=== PATIENT | female | born 1990 | race Caucasian/White ===

== ENCOUNTER 2018-06-18 15:01 | Outpatient (CLI) | payer MEDICAID, OTHER ==
[~2018-06-18] VITALS: Ht 167.6 cm; Wt 104.3 kg
[~2018-06-18 15:01] MED LIST: KEFLEX; PNV; TYLENOL
[2018-06-20] MEDS ORDERED: ACHD5005 PO (14:13)
== END 2018-06-18 15:37 | disposition home or self-care (01) ==
LOC: PREOP 15:01
PROVIDERS: ATTEND Podiatrist Foot & Ankle Surgery
DX: Z01.818 Encounter for other preprocedural examination (principal)

== ENCOUNTER 2018-06-20 10:58 | Day surgery (SDC) | payer MEDICAID, OTHER ==
[~2018-06-20] VITALS: Ht 167.6 cm; Wt 104.3 kg
[2018-06-20] MEDS ORDERED: LACTATED RINGERS 1,000 ML IV PRN (11:12)
[2018-06-20] MEDS ORDERED: ceFAZolin INJECTION 1,000 MG in NS (IVPB) 50 ML IV ONE (11:15)
[2018-06-20 11:57] VITALS: BP 115/65
[2018-06-20] MEDS ORDERED: proPOfol 200 MG/20 ML (DIPRIVAN) VIAL IV ONE (12:09)
[2018-06-20] MEDS ORDERED: LACTATED RINGERS 0 ML IV ONE (12:09)
[2018-06-20] MEDS ORDERED: ONDANSETRON 4 MG/2 ML (SDV) Z0FRAN ONE (12:09)
[2018-06-20] MEDS ORDERED: LIDOCAINE PF 2% 5 ML (XYLOCAINE) VIAL ONE (12:09)
[2018-06-20] MEDS ORDERED: BUPIVACAINE 0.25% 30 ML (SENSORCAINE) VIAL ONE (12:10)
[2018-06-20] MEDS ORDERED: fentaNYL INJECTION 100 MCG/2 ML AMP ONE (12:10)
[2018-06-20] MEDS ORDERED: MIDAZOLAM 2 MG/2 ML (VERSED) VIAL ONE (12:10)
[2018-06-20] MEDS ORDERED: DEXAMETHASONE 10 MG/ML (DECADRON) 1 ML VIAL ONE (12:10)
[2018-06-20] MEDS ORDERED: BUPIVACAINE 0.5% 30 ML (SENSORCAINE) VIAL ONE (12:14)
[2018-06-20] MEDS ORDERED: LIDOCAINE 1% INJ 20 ML 20 ML VIAL ONE (12:15)
--- NOTE | 2018-06-20 12:49 | Physical Therapy Progress Note ---
Therapy Progress Note PT performed pre-surgery consultation with patient. Patient was educated on the use of a walker, stairs, and a home exercise program. PACO GERMAN PT Jun 20, 2018 12:49
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
--- OUTSIDE RECORDS SUMMARY | 2018-06-20 13:13 | XMS REPORT ---
Author Author Doreen Emery Organization [facility] Address [address] [place] [id number] Care Team Providers Care Customer Care Associate Name Role Phone Doreen Emery PCP Allergies and Adverse Reactions Name Reaction Notes NO KNOWN DRUG ALLERGIES Plan of Treatment Not available. Medications Name Start Date Expiration Date SIG Comments cephalexin 500 mg oral capsule 02/07/2018 02/14/2018 take 1 capsule (500 mg) by oral route 4 times per day Problem List Not available. Vital Signs Date Time BP-Sys(mm[Hg] BP-Caitlyn(mm[Hg]) HR(bpm) RR(rpm) Temp WT HT HC BMI BSA BMI Percentile O2 Sat(%) 02/07/2018 5:22:00 PM 122 mmHg 80 mmHg 74 bpm 18 rpm 98.2 F 235.125 lbs 66 in 37.9498 kg/m 2.2285 m 100 % 02/12/2015 9:24:00 AM 120 mmHg 72 mmHg 78 bpm 20 rpm 97.6 F 230 lbs 66 in 37.12 kg/m2 2.20 m2 98 % 12/29/2013 11:12:00 AM 128 mmHg 78 mmHg 75 bpm 18 rpm 97.6 F 246.8 lbs 66 in 39.8342 kg/m 2.2832 m 100 % Social History Not available. History of Procedures Date Ordered Description Order Status 02/08/2018 12:00 AM Rocephin 1 gram Injection Reviewed 02/07/2018 12:00 AM THER/PROPH/DIAG INJ SC/IM Reviewed 02/07/2018 12:00 AM Rocephin 1 gram Injection Reviewed 12/29/2013 12:00 AM TB INTRADERMAL TEST Reviewed Results Summary Not available. History Of Immunizations Not available. History of Past Illness Name Date of Onset Comments *No known medical problems General Medical Exam, School/Work/etc Dec 29 2013 11:15AM Fingernail problem Feb 12 2015 9:26AM Cellulitis of right lower extremity Feb 07 2018 5:27PM Cellulitis of right foot Feb 08 2018 9:52AM Payers Insurance Name Company Name Plan Name Plan Number Policy Number Policy Group Number Start Date [place] Medical Assistance [facility] Medical Assistance Pro [id number] N/A [facility] [id number] N/A [facility] Occupational Medicine [id number] N/A History of Encounters Visit Date Visit Type Provider 02/08/2018 Nurse visit Doreen Emery PANTRY STEWARD/STEWARDESS 02/07/2018 Office visit Doreen Emery PANTRY STEWARD/STEWARDESS 02/12/2015 Office visit Dwayne Lin PA-C 12/29/2013 Office visit Naomy Burger PANTRY STEWARD/STEWARDESS 09/15/2009 Office visit Jimenez Headley MD 09/08/2009 Office visit Jimenez Headley MD 09/01/2009 Office visit Jimenez Headley MD 08/23/2009 [facility] Negrita Wolf MD 08/23/2009 [facility] Jimenez Headley MD 08/16/2009 Voided Jimenez Headley MD 08/15/2009 [facility] Jimenez Headley MD 08/09/2009 Office visit Jimenez Headley MD 08/02/2009 Office visit Jimenez Headley MD 07/29/2009 [facility] Jimenez Headley MD 07/26/2009 Office visit Jimenez Headley MD 07/20/2009 [facility] Jimenez Headley MD 07/19/2009 Office visit Jimenez Headley MD 07/17/2009 [facility] Jimenez Headley MD 07/05/2009 Office visit Jimenez Headley MD 06/21/2009 Office visit Jimenez Headley MD 06/07/2009 Office visit Jimenez Headley MD 05/10/2009 Office visit Jimenez Headley MD 04/12/2009 Office visit Jimenez Headley MD
--- OUTSIDE RECORDS SUMMARY | 2018-06-20 13:13 | XMS REPORT ---
Author Author [facility] Organization [facility] Address [address] [place], [place] [phone] Care Team Providers Care Automotive Leasing Sales Representative Name Role Phone PCP Unavailable Allergies and Adverse Reactions Name Reaction Notes NO KNOWN DRUG ALLERGIES Plan of Treatment Not available. Medications Not available. Problem List Not available. Vital Signs Date Time BP-Sys(mm[Hg] BP-Caitlyn(mm[Hg]) HR(bpm) RR(rpm) Temp WT HT HC BMI BSA BMI Percentile O2 Sat(%) 02/12/2015 9:24:00 AM 120 mmHg 72 mmHg 78 bpm 20 rpm 97.6 F 230 lbs 66 in 37.12 kg/m2 2.20 m2 98 % 12/29/2013 11:12:00 AM 128 mmHg 78 mmHg 75 bpm 18 rpm 97.6 F 246.8 lbs 66 in 39.8342 kg/m 2.2832 m 100 % Social History Not available. History of Procedures Date Ordered Description Order Status 12/29/2013 12:00 AM TB INTRADERMAL TEST Reviewed Results Summary Not available. History Of Immunizations Not available. History of Past Illness Name Date of Onset Comments *No known medical problems General Medical Exam, School/Work/etc Dec 29 2013 11:15AM Fingernail problem Feb 12 2015 9:26AM Payers Insurance Name Company Name Plan Name Plan Number Policy Number Policy Group Number Start Date [place] Prog [id number] N[facility] [id number] N/A [facility] Med Occupational Medicine [id number] N/A History of Encounters Visit Date Visit Type Provider 02/12/2015 Office visit Dwayne Lin PA-C 12/29/2013 Office visit Naomy Burger APRN 09/15/2009 Office visit Jimenez Headley MD 09/08/2009 Office visit Jimenez Headley MD 09/01/2009 Office visit Jimenez Headley MD 08/23/2009 [facility] Jimenez Headley MD 08/23/2009 [facility] Negrita Wolf MD 08/16/2009 Voided Jimenez Headley MD 08/15/2009 [facility] Jimenez Headley MD 08/09/2009 Office visit Jimenez Headley MD 08/02/2009 Office visit Jimenez Headley MD 07/29/2009 [facility] Jimenez Headley MD 07/26/2009 Office visit Jimenez Headley MD 07/20/2009 [facility] Jimenez Headley MD 07/19/2009 Office visit Jimenez Headley MD 07/17/2009 [facility] Jimenez Headley MD 07/05/2009 Office visit Jimenez Headley MD 06/21/2009 Office visit Jimenez Headley MD 06/07/2009 Office visit Jimenez Headley MD 05/10/2009 Office visit Jimenez Headley MD 04/12/2009 Office visit Jimenez Headley MD
--- OUTSIDE RECORDS SUMMARY | 2018-06-20 13:13 | XMS REPORT ---
Author Author Doreen Emery Organization [facility] Address [address] [place] [id number] Care Team Providers Care Cloth Bleaching Range Operator Chief Name Role Phone Doreen Emery PCP Allergies and Adverse Reactions Name Reaction Notes NO KNOWN DRUG ALLERGIES Plan of Treatment Not available. Medications Active Name Start Date Estimated Completion Date SIG Comments cephalexin 500 mg oral [...] of Procedures Date Ordered Description Order Status 02/07/2018 12:00 AM THER/PROPH/DIAG INJ SC/IM Reviewed 02/07/2018 12:00 AM Rocephin 1 gram Injection Reviewed 02/08/2018 12:00 AM Rocephin 1 gram Injection [...] Group Number Start Date [place] Medical Assistance [facility] Medical Assistance Prog [id number] N/A [facility] [id number] N/A [facility] Occupational Medicine [id number] N/A History of Encounters Visit Date Visit Type Provider 02/08/2018 Nurse visit Doreen Emery DAIRY FARM OPERATOR 02/07/2018 Office visit Doreen Emery DAIRY FARM OPERATOR 02/12/2015 Office visit Dwayne Lin PA-C 12/29/2013 Office visit Naomy Burger DAIRY FARM OPERATOR 09/15/2009 Office visit Jimenez Headley MD 09/08/2009 Office visit Jimenez Headley MD 09/01/2009 Office visit Jimenez Headley MD 08/23/2009 [facility] Negrita Wolf MD 08/23/2009 [facility] Jimenez Headley MD 08/16/2009 Voided Jimenez Headley MD 08/15/2009 [facility] Jimenez Headley MD 08/09/2009 Office visit Jimenez Headley MD 08/02/2009 Office visit Jimenez Headley MD 07/29/2009 [facility] Jimenez Headley MD 07/26/2009 Office visit Jimenez Headley MD 07/20/2009 [facility] Jimenez Headley MD 07/19/2009 Office visit Jimenez Headley MD 07/17/2009 [facility] Jimenez Headley MD 07/05/2009 Office visit Jimenez Headley MD 06/21/2009 Office visit Jimenez Headley MD 06/07/2009 Office visit Jimenez Headley MD 05/10/2009 Office visit Jimenez Headley MD 04/12/2009 Office visit Jimenez Headley MD
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
--- OUTSIDE RECORDS SUMMARY | 2018-06-20 13:13 | XMS REPORT ---
Author Author [facility] Organization [facility] Address [address] [place], [place] [address] Care Team Providers Care Bill Sorter Name Role Phone PCP Unavailable Allergies and [...] Policy Number Policy Group Number Start Date [place] Medical [place] Prog [id number] N[facility]A [facility] [id number] N/A [facility] Med Occupational Medicine [id number] N/A History of Encounters Visit Date Visit Type Provider 02/12/2015 Office visit Dwayne Lin PA-C 12/29/2013 Office visit Naomy Burger APRN 09/15/2009 Office visit Jimenez Headley MD 09/08/2009 Office visit Jimenez Headley MD 09/01/2009 Office visit Jimenez Headley MD 08/23/2009 Hospital Jimenez Headley MD 08/23/2009 [facility] Negrita Wolf MD 08/16/2009 Voided Jimenez Headley MD 08/15/2009 [facility] Jimenez Healdey MD 08/09/2009 Office visit Jimenez Headley MD 08/02/2009 Office visit Jimenez Headley MD 07/29/2009 [facility] Jimenez Headley MD 07/26/2009 Office visit Jimenez Headley MD 07/20/2009 [facility] Jimenez Headley MD 07/19/2009 Office visit Jimenez eHadley MD 07/17/2009 [facility] Jimenez Headley MD 07/05/2009 Office visit Jimenez Headley MD 06/21/2009 Office visit Jimenez Headley MD 06/07/2009 Office visit Jimenez Headley MD 05/10/2009 Office visit Jimenez Headley MD 04/12/2009 Office visit Jimenez Headley MD
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
--- OUTSIDE RECORDS SUMMARY | 2018-06-20 13:14 | XMS REPORT ---
Author Author JOSE GEE [facility] Address [address] [place] [address] Care Team Providers Care Support Services Rep Name Role Phone JOSE GEE Unavailable PROBLEMS Unknown Problems ALLERGIES No Information ENCOUNTERS Encounter Location Date Diagnosis [facility] [address] [facility] [id number], [place] [address] May, [facility] [address] [id number] [place] [address] Feb [facility] [address] [id number] [place] [address] Feb Foot swelling M79.89 and Pain in right foot M79.671 [facility] [address] [id number] [place] [address] Jan Foot swelling M79.89 [facility] [address] [facility] [id number] [place] [address] Oct, [facility] [address] [id number] [place] [address] Oct Foot swelling M79.89 [facility] [address] [id number] [place] [address] Oct Physical exam, pre-employment Z02.1 [facility] [address] [id number] [place] [address] Aug Abscess L02.91 [facility] [address] [facility] [id number] [place] [id number] 07 Apr, 2016 Dental examination Z01.20 and Dental caries K02.9 IMMUNIZATIONS No Known Immunizations SOCIAL HISTORY Never Assessed REASON FOR VISIT Requests return call PLAN OF CARE VITAL SIGNS MEDICATIONS Unknown Medications RESULTS No Results PROCEDURES No Known procedures INSTRUCTIONS MEDICATIONS ADMINISTERED No Known Medications MEDICAL (GENERAL) HISTORY Type Description Date Surgical History x 3 Surgical History appendectomy Hospitalization History surgery Hospitalization History child
--- OUTSIDE RECORDS SUMMARY | 2018-06-20 13:14 | XMS REPORT ---
Author Author SKYE MCKEON Organization [facility] Address [address] [place] [address] Care Team Providers Care Anthropometrist Name Role Phone KASSIDY MCKEONIN Unavailable PROBLEMS Unknown Problems ALLERGIES No Information ENCOUNTERS Encounter Location Date Diagnosis [facility] [id number] [place] [address] Jun, Edema of right foot R60.0 and Soft tissue lesion of foot M79.89 [place] [address] [id number], [place] [address] May, [facility] [address] [id number] [place] [address] May Pain in right foot M79.671 and Cellulitis of foot, right L03.115 [place] [id number] [place] [address] May, Other soft tissue disorders related to use, overuse and pressure, right ankle and foot M70.871 [facility] [address]65100[place] [address] Apr Foot swelling M79.89 and Pain in right foot M79.671 [facility] [address] [place] [address] Feb [facility] [place] [address] Feb Foot swelling M79.89 and Pain in right foot M79.671 [facility] [place] [address] Jan Foot swelling M79.89 [place] [place] [address] [id number], [place] [address] Oct, [facility] [address] [id number] [place] [address] Oct Foot swelling M79.89 [facility] [address]ERDA [id number] [place] [address] Oct Physical exam, pre-employment Z02.1 [facility] [place] JANIS CERDA [id number] [place] [address] Aug Abscess L02.[address] [facility] [address] [id number] [place] [address] 07 Apr, 2016 Dental examination Z01.20 and Dental caries K02.9 IMMUNIZATIONS No Known Immunizations SOCIAL HISTORY Never Assessed REASON FOR VISIT Chronic Swelling right forefoot & midfoot; xrays completed 10/2017 - GENTRY Ochoa PLAN OF CARE Activity Details Follow Up 3 Weeks Reason: VITAL SIGNS Height 66.0 in 2018-05-16 Blood pressure systolic 110 mmHg 2018-05-16 Blood pressure diastolic 70 mmHg 2018-05-16 MEDICATIONS Unknown Medications RESULTS Name Result Date Reference Range MRI : Foot, Right 2018-05-22 PROCEDURES No Known procedures INSTRUCTIONS MEDICATIONS ADMINISTERED No Known Medications MEDICAL (GENERAL) HISTORY Type Description Date Surgical History x 3 Surgical History appendectomy Hospitalization History surgery Hospitalization History child
--- OUTSIDE RECORDS SUMMARY | 2018-06-20 13:14 | XMS REPORT ---
Author Author JOSE GEE [facility] Address [address] [place] [address] Care Team Providers Care Crusher Machine Operator Name Role Phone JOSE GEE Unavailable PROBLEMS Unknown Problems ALLERGIES Substance Reaction Event Type Date Status N.K.D.A. Unknown Non Drug Allergy Aug, Unknown SOCIAL HISTORY No smoking Hx information available PLAN OF CARE Activity Details Follow Up prn Reason: VITAL SIGNS Height 66.0 in 2016-08-06 Weight 224.2 lbs 2016-08-06 Temperature 96.8 degrees Fahrenheit 2016-08-06 Heart Rate 84 bpm 2016-08-06 Respiratory Rate 18 2016-08-06 BMI 36.18 kg/m2 2016-08-06 Blood pressure systolic 122 mmHg 2016-08-06 Blood pressure diastolic 60 mmHg 2016-08-06 MEDICATIONS Medication Instructions Dosage Frequency Start Date End Date Duration Status Bactrim DS 800-160 MG Orally Twice a day 1 tablet 12h Aug,Aug 10 day(s) Active RESULTS No Results PROCEDURES Procedure Date Ordered Related Diagnosis Body Site Office Visit, New Pt., Level 3 Aug 06, 2016 IMMUNIZATIONS No Known Immunizations
--- OUTSIDE RECORDS SUMMARY | 2018-06-20 13:14 | XMS REPORT ---
Author Author HILLARY RAINEY [facility] Address [address] [place] [address] Care Team Providers Care Pulpwood Contractor Name Role Phone HILLARY RAINEY Unavailable PROBLEMS Unknown Problems ALLERGIES No Known Allergies ENCOUNTERS Encounter Location Date Diagnosis [facility] [address] [facility] [id number] [address] May, [facility] [address] [id number] [place] [address] Feb [facility] [address] [id number] [place] [address] Feb Foot swelling M79.89 and Pain in right foot M79.671 [facility] [address] [id number] [place] [address] Jan Foot swelling M79.89 [facility] [address] [facility] [id number] [place] [address] 31 Oct, 2017 [facility] [address] [id number] [place] [address] Oct Foot swelling M79.89 [facility] [address] [id number] [place] [address] Oct Physical exam, pre-employment Z02.1 [facility] [address] [id number] [place] [address] Aug Abscess L02.91 [facility] [address] [facility] [id number] [place] [id number] 07 Apr, 2016 Dental examination Z01.20 and Dental caries K02.9 IMMUNIZATIONS No Known Immunizations SOCIAL HISTORY Never Assessed REASON FOR VISIT Foot pain follow up-Patient states she is still having the same foot pain in the Rt foot. Jagdeep VILLA PLAN OF CARE Activity Details Follow Up prn Reason: VITAL SIGNS Height 66.0 in 2018-02-04 Weight 237.5 lbs 2018-02-04 Temperature 98.5 degrees Fahrenheit 2018-02-04 Heart Rate 76 bpm 2018-02-04 Respiratory Rate 18 2018-02-04 Oximetry 98 % 2018-02-04 BMI 38.33 kg/m2 2018-02-04 Blood pressure systolic 120 mmHg 2018-02-04 Blood pressure diastolic 78 mmHg 2018-02-04 MEDICATIONS Medication Instructions Dosage Frequency Start Date End Date Duration Status ibuprofen 200 mg Oral as needed 4 tablets Active Tramadol HCl 50 mg Orally 2 times a day 1 tablet as needed 12h Feb, Feb, 10 days Active RESULTS No Results PROCEDURES No Known procedures INSTRUCTIONS MEDICATIONS ADMINISTERED No Known Medications MEDICAL (GENERAL) HISTORY Type Description Date Surgical History x 3 Surgical History appendectomy Hospitalization History surgery Hospitalization History child
--- OUTSIDE RECORDS SUMMARY | 2018-06-20 13:14 | XMS REPORT ---
Author Author HILLARY RAINEY Organization [facility] Address [address] [place] [address] Care Team Providers Care Lead Custodian Name Role Phone HILLARY RAINEY Unavailable PROBLEMS Unknown Problems ALLERGIES No Known Allergies ENCOUNTERS Encounter Location Date Diagnosis [facility] [address] [facility] [id number], [place] [address] May, [facility] [address] [id number] [place] [address] Feb [facility] [address] [id number] [place] [address] Feb Foot swelling M79.89 and Pain in right foot M79.671 [facility] [address] [id number] [place] [address] Jan Foot swelling M79.89 [facility] [address] [id number], [place] [address] Oct, [facility] [address] [id number] [place] [address] Oct Foot swelling M79.89 [facility] [address] [id number] [place] [address] Oct Physical exam, pre-employment Z02.1 [facility] [address] [id number] [place] [address] Aug Abscess L02.91 [facility] [address] [facility] [id number] [id number] 07 Apr, 2016 Dental examination Z01.20 and Dental caries K02.9 IMMUNIZATIONS No Known Immunizations SOCIAL HISTORY Never Assessed REASON FOR VISIT work Physical. GENTRY Lilly PLAN OF CARE Activity Details Follow Up prn Reason: VITAL SIGNS Height 66.0 in 2017-10-04 Weight 232.2 lbs 2017-10-04 Temperature 98.9 degrees Fahrenheit 2017-10-04 Heart Rate 82 bpm 2017-10-04 Respiratory Rate 18 2017-10-04 Oximetry 97 % 2017-10-04 BMI 37.47 kg/m2 2017-10-04 Blood pressure systolic 118 mmHg 2017-10-04 Blood pressure diastolic 68 mmHg 2017-10-04 MEDICATIONS Unknown Medications RESULTS No Results PROCEDURES Procedure Date Ordered Result Body Site TB INTRADERMAL 2017-10-04 N/A TB INTRADERMAL TEST October 04, 2017 INSTRUCTIONS MEDICATIONS ADMINISTERED No Known Medications MEDICAL (GENERAL) HISTORY Type Description Date Surgical History x 3 Surgical History appendectomy Hospitalization History surgery Hospitalization History child
--- OUTSIDE RECORDS SUMMARY | 2018-06-20 13:14 | XMS REPORT ---
Author Author HILLARY RAINEY Organization [facility] Address [address] [place] [address] Care Team Providers Care Student Life Coordinator Name Role Phone HILLARY RAINEY Unavailable PROBLEMS Unknown Problems ALLERGIES No Information ENCOUNTERS Encounter Location Date Diagnosis [facility] [address] [facility] [id number], [place] [address] May, [facility] [address] [id number] [place] [address] Feb [facility] [address] [id number] [place] [address] Feb Foot swelling M79.89 and Pain in right foot M79.671 [facility] [address] [id number] [place] [address] Jan Foot swelling M79.89 [facility] [address] [id number], [place] [address] Oct, [facility] [address] [id number] [place] [address] Oct Foot swelling M79.89 [facility] [address] [id number] [place] [address] Oct Physical exam, pre-employment Z02.1 [facility] Cavazos [address] CERDA [id number] [place] [address] Aug Abscess L02.91 [facility] [address] [facility] [id number] [id number] 07 Apr, 2016 Dental examination Z01.20 and Dental caries K02.9 IMMUNIZATIONS No Known Immunizations SOCIAL HISTORY Never Assessed REASON FOR VISIT TRAMADOL-I PLAN OF CARE VITAL SIGNS MEDICATIONS Unknown Medications RESULTS No Results PROCEDURES No Known procedures INSTRUCTIONS MEDICATIONS ADMINISTERED No Known Medications MEDICAL (GENERAL) HISTORY Type Description Date Surgical History x 3 Surgical History appendectomy Hospitalization History surgery Hospitalization History child
--- OUTSIDE RECORDS SUMMARY | 2018-06-20 13:14 | XMS REPORT ---
Author Author HILLARY RAINEY Organization [facility] Address [address] [address] Care Team Providers Care Registered Dietetic Technician Name Role Phone HILLARY RAINEY Unavailable PROBLEMS Unknown Problems ALLERGIES No Known Allergies ENCOUNTERS Encounter Location Date Diagnosis [place] [address] [id number] [address] Jun, [place] [address]00565100[place], [place] [address] May, [facility] Draper65100KS [place] [address] May Pain in right foot M79.671 and Cellulitis of foot, right L03.115 [address] [place] [address] [id number], [place] [address] May, Other soft tissue disorders related to use, overuse and pressure, right ankle and foot M70.871 [facility] [address]100[place] [address] Apr Foot swelling M79.89 and Pain in right foot M79.671 [facility] [place] [address] Feb [facility] [place] [address] Feb Foot swelling M79.89 and Pain in right foot M79.671 [facility] [address] [address] Jan Foot swelling M79.89 [place] [place] [address] [facility] [id number], [place] [address] Oct, [facility] [place] [address] 27 Oct Foot swelling M79.89 [facility] [address] [id number] [place] [address] 02 Oct Physical exam, pre-employment Z02.1 [facility] Cavazos JANIS CERDA [id number] [place] [address] 02 Aug Abscess L02.91 [facility] [address] [id number] [place] [id number] 07 Apr, 2016 Dental examination Z01.20 and Dental caries K02.9 IMMUNIZATIONS No Known Immunizations SOCIAL HISTORY Never Assessed REASON FOR VISIT C/o right foot pain getting worse. Current pain level 10/10 and redness that is spreading up the right leg ongoing 3 days. CRYSTAL Crowe PLAN OF CARE Activity Details Follow Up prn Reason: VITAL SIGNS Height 66.0 in 2018-05-26 Weight 236 lbs 2018-05-26 Temperature 98.6 degrees Fahrenheit 2018-05-26 Heart Rate 71 bpm 2018-05-26 Respiratory Rate 18 2018-05-26 Oximetry 98 % 2018-05-26 BMI 38.09 kg/m2 2018-05-26 Blood pressure systolic 120 mmHg 2018-05-26 Blood pressure diastolic 80 mmHg 2018-05-26 MEDICATIONS Medication Instructions Dosage Frequency Start Date End Date Duration Status Diclofenac Sodium 75 MG Orally Twice a day 1 tablet with food or milk 12h May, Jun, 30 day(s) Active Cephalexin 500 mg Orally every 12 hrs 1 capsule 12h May, Jun, 10 day(s) Active ibuprofen 200 mg Oral as needed 4 tablets Active RESULTS No Results PROCEDURES No Known procedures INSTRUCTIONS MEDICATIONS ADMINISTERED No Known Medications MEDICAL (GENERAL) HISTORY Type Description Date Surgical History x 3 Surgical History appendectomy Hospitalization History surgery Hospitalization History child
--- OUTSIDE RECORDS SUMMARY | 2018-06-20 13:14 | XMS REPORT ---
Author Author HILLARY RAINEY Organization [facility] Address [address] [address] Care Team Providers Care Lead Embedded Software Engineer Name Role Phone HILLARY RAINEY Unavailable PROBLEMS Unknown Problems ALLERGIES No Information ENCOUNTERS Encounter Location Date Diagnosis [place] [address] [place] [address] Jun, Edema of right foot R60.0 and Soft tissue lesion of foot M79.89 [place] [address] [id number] [address] May, [facility] [address] [id number] [place] [address] May Pain in right foot M79.671 and Cellulitis of foot, right L03.115 [place] [address]00565100[place] [address] May, Other soft tissue disorders related to use, overuse and pressure, right ankle and foot M70.871 [facility] [address] [place] [address] Apr Foot swelling M79.89 and Pain in right foot M79.671 [facility] [address] [id number] [place] [address] [facility] [address] [place] [address] Feb Foot swelling M79.89 and Pain in right foot M79.671 [facility] [place] [address] Jan Foot swelling M79.89 [place] [place] [address] [id number] [address] Oct, [facility] Cavazos JANIS CERDA [id number] [place] [address] Oct Foot swelling M79.89 [facility] Cav[facility] JANIS CERDA [id number] [place] [address] Oct Physical exam, pre-employment Z02.1 [facility] Cavazos JANIS CERDA [id number] [place] [address] Aug Abscess L02.91 [facility] [address] [facility] [id number] [place] [id number] 07 Apr, 2016 Dental examination Z01.20 and Dental caries K02.9 IMMUNIZATIONS No Known Immunizations SOCIAL HISTORY Never Assessed REASON FOR VISIT Foot pain PLAN OF CARE VITAL SIGNS MEDICATIONS Unknown Medications RESULTS No Results PROCEDURES No Known procedures INSTRUCTIONS MEDICATIONS ADMINISTERED No Known Medications MEDICAL (GENERAL) HISTORY Type Description Date Surgical History x 3 Surgical History appendectomy Hospitalization History surgery Hospitalization History child
--- OUTSIDE RECORDS SUMMARY | 2018-06-20 13:14 | XMS REPORT ---
Author Author HILLARY RAINEY [facility] Address [address] [place] [address] Care Team Providers Care Home Service Advisor Name Role Phone HILLARY RAINEY Unavailable PROBLEMS Unknown Problems ALLERGIES No Known Allergies ENCOUNTERS Encounter Location Date Diagnosis [facility] [address] [facility] [id number] [address] May, [facility] [address] [id number] [place] [address] Feb [facility] [address] [id number] [place] [address] Feb Foot swelling M79.89 and Pain in right foot M79.671 [facility] [address] [id number] [place] [address] Jan Foot swelling M79.89 [facility] [address] [id number], [place] [address] 31 Oct, 2017 [facility] [address] [id number] [place] [address] Oct Foot swelling M79.89 [facility] [address] [id number] [place] [address] Oct Physical exam, pre-employment Z02.1 [facility] [address] [id number] [place] [address] Aug Abscess L02.91 [facility] [address] [facility] [id number] [address] 07 Apr, 2016 Dental examination Z01.20 and Dental caries K02.9 IMMUNIZATIONS No Known Immunizations SOCIAL HISTORY Never Assessed REASON FOR VISIT foot pain, Pt stilll having Rt foot pain, and swelling. GENTRY Lilly PLAN OF CARE Activity Details Follow Up prn, pending labs Reason: Future/Pending Procedure ROUTINE VENIPUNCTURE VITAL SIGNS Height 66.0 in 2018-01-22 Weight 229.4 lbs 2018-01-22 Temperature 97.8 degrees Fahrenheit 2018-01-22 Heart Rate 84 bpm 2018-01-22 Respiratory Rate 18 2018-01-22 Oximetry 99 % 2018-01-22 BMI 37.02 kg/m2 2018-01-22 Blood pressure systolic 120 mmHg 2018-01-22 Blood pressure diastolic 68 mmHg 2018-01-22 MEDICATIONS Medication Instructions Dosage Frequency Start Date End Date Duration Status PredniSONE 20 mg Orally Once a day 3 tablets daily for 3 days, then 2 tablets daily for 3 days, then 1 tablet daily x 3 days 24h Jan, Jan, 9 days Active RESULTS No Results PROCEDURES Procedure Date Ordered Result Body Site COMPLETE CBC W/AUTO DIFF WBC January 22, 2018 C-REACTIVE PROTEIN January 22, 2018 GLYCATED HEMOGLOBIN TEST January 22, 2018 COMPREHEN METABOLIC PANEL January 22, 2018 VENIPUNCT, ROUTINE* January 22, 2018 INSTRUCTIONS MEDICATIONS ADMINISTERED No Known Medications MEDICAL (GENERAL) HISTORY Type Description Date Surgical History x 3 Surgical History appendectomy Hospitalization History surgery Hospitalization History child
--- OUTSIDE RECORDS SUMMARY | 2018-06-20 13:14 | XMS REPORT ---
Author Author SHONDA RAYUMNDO [facility] Address Unknown Care Team Providers Care Tire Wrapper Name Role Phone ZACKARY SHONDA Unavailable PROBLEMS Type Condition ICD9-CM Code CQG59-HC Code Onset Dates Condition Status SNOMED Code Assessment Dental examination Z01.20 Apr, Active 903468667 Assessment Dental caries K02.9 Apr, Active [id number] ALLERGIES Substance Reaction Event Type Date Status N.K.D.A. Unknown Non Drug Allergy Apr, Unknown SOCIAL HISTORY No smoking Hx information available PLAN OF CARE VITAL SIGNS Blood pressure systolic 121 mmHg 2016-04-11 Blood pressure diastolic 81 mmHg 2016-04-11 MEDICATIONS No Known Medications RESULTS No Results PROCEDURES Procedure Date Ordered Related Diagnosis Body Site LTD ORAL EVALUATION - PROBLEM FOCUS Apr 11, 2016 INTRAORL-PERIAPICAL 1 FILM [id number] Apr 11, 2016 EXTRAC ERUPTED TOOTH/EXPOSED ROOT Apr 11, 2016 IMMUNIZATIONS No Known Immunizations
--- OUTSIDE RECORDS SUMMARY | 2018-06-20 13:14 | XMS REPORT ---
Author Author SKYE MCKEON Organization [facility] Address [address] [place] [address] Care Team Providers Care Surgical Dental Assistant Name Role Phone KASSIDY MCKEONIN Unavailable PROBLEMS Unknown Problems ALLERGIES No Information ENCOUNTERS Encounter Location Date Diagnosis [facility] [id number] [place] [address] Jun, Edema of right foot R60.0 and Soft tissue lesion of foot M79.89 [address] [address] [address] [id number], [place] [address] May, [facility] [address] [id number] [place] [address] May Pain in right foot M79.671 and Cellulitis of foot, right L03.115 [id number] [place] [address] May, Other soft tissue disorders related to use, overuse and pressure, right ankle and foot M70.871 [facility] [address] [place] [address] Apr Foot swelling M79.89 and Pain in right foot M79.671 [facility] [address] [place] [address] Feb [facility] [address] Feb Foot swelling M79.89 and Pain in right foot M79.671 [facility] [place] [address] [address] Jan Foot swelling M79.89 [address] [id number], [place] [address] Oct, [facility] [address] [id number] [place] [address] Oct Foot swelling M79.89 [facility] DEL VAL[address] CERDA [id number] [place] [address] Oct Physical exam, pre-employment Z02.1 [facility] Cavazos JANIS CERDA [id number] [place] [address] Aug Abscess L02.91 [facility] [address] [id number] [place] [id number] 07 Apr, 2016 Dental examination Z01.20 and Dental caries K02.9 IMMUNIZATIONS No Known Immunizations SOCIAL HISTORY Never Assessed REASON FOR VISIT MRI f/u - GENTRY Ochoa PLAN OF CARE Activity Details Follow Up prn Reason: VITAL SIGNS Height 66.0 in 2018-06-06 Blood pressure systolic 114 mmHg 2018-06-06 Blood pressure diastolic 78 mmHg 2018-06-06 MEDICATIONS Unknown Medications RESULTS No Results PROCEDURES No Known procedures INSTRUCTIONS MEDICATIONS ADMINISTERED No Known Medications MEDICAL (GENERAL) HISTORY Type Description Date Surgical History x 3 Surgical History appendectomy Hospitalization History surgery Hospitalization History child
--- OUTSIDE RECORDS SUMMARY | 2018-06-20 13:14 | XMS REPORT ---
Author Author JOSE GEE [facility] Address [address] [place] [address] Care Team Providers Care Sanding Machine Tender Name Role Phone JOSE GEE Unavailable PROBLEMS Unknown Problems ALLERGIES No Known Allergies ENCOUNTERS Encounter Location Date Diagnosis [facility] [address] [facility] [id number] [address] May, [facility] [place] [address] [id number] [place] [address] Feb [facility] [address] [id number] [place] [address] Feb Foot swelling M79.89 and Pain in right foot M79.671 [facility] [address] [id number] [place] [address] Jan Foot swelling M79.89 [facility] [address] [id number] [place] [address] Oct, [facility] [address] [id number] [place] [address] Oct Foot swelling M79.89 [facility] [address] [id number] [place] [address] Oct Physical exam, pre-employment Z02.1 [facility] [address] [id number] [place] [address] Aug Abscess L02.91 [facility] [address] [facility] [id number] [place] [id number] 07 Apr, 2016 Dental examination Z01.20 and Dental caries K02.9 IMMUNIZATIONS No Known Immunizations SOCIAL HISTORY Never Assessed REASON FOR VISIT Swollen R foot, Bumps on bottom of foot. DAISY song PLAN OF CARE Activity Details Follow Up prn Reason: VITAL SIGNS Height 66.0 in 2017-10-29 Weight 241.1 lbs 2017-10-29 Temperature 97.2 degrees Fahrenheit 2017-10-29 Heart Rate 83 bpm 2017-10-29 Respiratory Rate 18 2017-10-29 BMI 38.91 kg/m2 2017-10-29 Blood pressure systolic 120 mmHg 2017-10-29 Blood pressure diastolic 70 mmHg 2017-10-29 MEDICATIONS Medication Instructions Dosage Frequency Start Date End Date Duration Status Bactrim DS 800-160 MG Orally Twice a day 1 tablet 12h Oct, Nov, 10 day(s) Active RESULTS Name Result Date Reference Range Xray : Foot, Right 2017-10-29 PROCEDURES No Known procedures INSTRUCTIONS MEDICATIONS ADMINISTERED No Known Medications MEDICAL (GENERAL) HISTORY Type Description Date Surgical History x 3 Surgical History appendectomy Hospitalization History surgery Hospitalization History child
--- NOTE | 2018-06-20 13:15 | Progress Note-Pre Operative ---
Pre-Operative Progress Note H&P Reviewed The H&P was reviewed, patient examined and no changes noted. Date Seen by Provider: Jun 20, 2018 Time Seen by Provider: 13:14 Date H&P Reviewed: Jun 20, 2018 Time H&P Reviewed: 13:15 Pre-Operative Diagnosis: Neosplasm right foot SKYE MCKEON DPM Jun 20, 2018 1:15 pm
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
--- OUTSIDE RECORDS SUMMARY | 2018-06-20 13:15 | XMS REPORT | Continuity of Care Document ---
Author Author [facility] Organization [facility] Address Unknown Phone Unavailable Allergies There is no data. Medications There is no data. Problems There is no data. Procedures There is no data. Results There is no data. Encounters ACCT No. Visit Date/Time Discharge Status Pt. Type Provider Facility Loc./Unit Complaint [id number] 02/08/2018 10:07:53 02/08/2018 23:59:59 [facility] Outpatient Doreen Emery Rosetta [id number] 02/07/2018 18:08:36 02/07/2018 23:59:59 [facility] [place] [id number] 03/14/2015 22:17:10 03/14/2015 23:59:59 [facility] Outpatient Dwayne Lni [id number] 12/29/2013 12:03:20 12/29/2013 23:59:59 [facility] Outpatient Naomy Burger
[2018-06-20] MEDS ORDERED: SEVOFLURANE (ULTANE) 15 ML INHAL SOLN ONE ×6 (14:03)
[2018-06-20] MEDS ORDERED: LACTATED RINGERS 1,000 ML IV SCH (14:09)
--- NOTE | 2018-06-20 14:09 | Progress Note-Post Operative ---
Post-Operative Progess Note Surgeon (s)/Manager Market Development (s) Surgeon SKYE MCKEON DPM Manager Market Development: NONE Pre-Operative Diagnosis Neosplasm right foot Post-Operative Diagnosis Same Procedure & Operative Findings Date of Procedure 06/20/18 Procedure Performed/Findings Deep Biopsy plantar right foot Anesthesia Type General Estimated Blood Loss Estimated blood loss (mL): Minimal Specimens/Packing Specimens Removed Soft tissue right foot Packing: None SKYE MCKEON DPM Jun 20, 2018 2:09 pm
[2018-06-20] MEDS ORDERED: ACHD5005 PO (14:13)
[2018-06-20] MEDS ORDERED: HYDROcodone/APAP 5 MG/325 MG (LORTAB) TAB PO PRN (14:15)
[2018-06-20] MEDS ORDERED: ONDANSETRON 4 MG/2 ML (SDV) Z0FRAN IVP PRN (14:30)
[2018-06-20] MEDS ORDERED: HYDROmorphone 2 MG/ML VIAL (DILAUDID) IV ONE (14:30)
[2018-06-20] MEDS ORDERED: morphine INJ 10 MG/ML 1ML (SYR OR VIAL) IVP ONE (14:30)
[2018-06-20 15:00] VITALS: BP 128/65
--- NOTE | 2018-06-20 15:03 | Anesthesia-General Post-Op ---
General Patient Condition Mental Status/LOC: Same as Preop Cardiovascular: Satisfactory Nausea/Vomiting: Absent Respiratory: Satisfactory Pain: Controlled Complications: Absent Post Op Complications Complications None Follow Up Care/Instructions Patient Instructions None needed. Anesthesia/Patient Condition Patient Condition Patient is doing well, no complaints, stable vital signs, no apparent adverse anesthesia problems. No complications reported per nursing. KASSIE BEAUCHAMP CRNA Jun 20, 2018 15:03
[2018-06-20 15:30] VITALS: BP 124/86
[2018-06-20 16:00] VITALS: BP 128/81
--- NOTE | 2018-06-20 22:47 | OPERATIVE REPORT ---
DATE OF SERVICE: 06/20/2018 SURGEON: Jodi Pollard DPM PREOPERATIVE DIAGNOSIS: Soft tissue mass, right foot. POSTOPERATIVE DIAGNOSIS: Soft tissue mass, right foot. PROCEDURE: Deep biopsy of right foot. WOUND CLASS: Clean. ANESTHESIA: General. HEMOSTASIS: Pneumatic ankle tourniquet at 250 mmHg. INDICATIONS: This is a 27-year-old female presents with a mass that has grown over the last several months. This started to get progressively more painful for her and she has gone for an MRI, which was inconclusive as to what the diagnosis might be and she is agreeable to surgical biopsy after risks and complications were discussed at length. She understands she has a chance of painful scar, numbness or other complications and she is willing to proceed. DESCRIPTION OF PROCEDURE: The patient was brought back to the operating room and placed in secure supine position. A general anesthetic was then induced. A 3 mL of 0.5% Marcaine was injected in a local infusion to the plantar aspect of the right forefoot about the area of the mid diaphysis of the third and fourth metatarsal space. A longitudinal wedge of skin was incised from distal to proximal of approximately 2 cm. The incision was deepened in the same plane down to subcutaneous tissue into the adipose area where there is a different texture to the adipose tissue area. This whole area was sent for gross and microscopic evaluation. Further blunt dissection was carried out into the plantar fat pad. There is some graying of the tissue as well as some bright yellow to orange discoloration to some of the adipose tissue. This was also sent for gross and microscopic evaluation. No distinct borders to the lesion was identified. The wound was then flushed with copious amounts of normal saline and closure was then performed in layers. Deep closure was performed with 3-0 Vicryl, superficial with 4-0 Vicryl, skin closed with 4-0 Prolene in a simple interrupted type stitch. A postoperative injection consisted of 3 mL of 0.5% Marcaine injected in a local infusion to the surgical site. Postoperative dressing consisted of Betadine soaked Adaptic, sterile 4 x 4, sterile Kerlix all secured with a Coban wrap. It should be noted that the width of the skin for specimen that was sent was approximately 3 mm. Once the tourniquet was released appropriate cap refill time was noted to all digits of the right foot. The patient tolerated the anesthesia and procedure well, was transported from the operating room to the recovery area with vital signs stable and vascular status intact to all digits of the right foot. She is to follow up in my clinic in three weeks' period of time for the [facility]; however, she will have her sutures removed in approximately 2 weeks in my office. She was given a prescription for hydrocodone. Job ID: [id number] DocumentID: [id number] Dictated Date: 06/20/2018 14:19:37 Human Services Case Manager Date: 06/20/2018 22:46:56 Dictated By: GLO RUTLEDGE
== END 2018-06-20 16:00 | disposition home or self-care (01) ==
LOC: SDC 10:58
PROVIDERS: ATTEND Podiatrist Foot & Ankle Surgery
DX: B35.3 Tinea pedis (principal); F17.210 Nicotine dependence, cigarettes, uncomplicated; E66.9 Obesity, unspecified; Z68.37 Body mass index [BMI] 37.0-37.9, adult
CPT/HCPCS: 84703; 87070; 87075; 87077; 87081; 87205; 88305; 88312; 88341; 88342

== ENCOUNTER 2018-07-03 05:36 | Outpatient (CLI) | payer OTHER ==
[~2018-07-03] VITALS: Ht 167.6 cm; Wt 104.3 kg
[~2018-07-03 05:36] MED LIST changes: +ACHD5005 PO
[2018-07-04] MEDS ORDERED: CEPH500C PO (12:59)
[2018-07-04] MEDS ORDERED: ACHD5005 PO (12:59)
== END 2018-07-03 13:18 | disposition home or self-care (01) ==
LOC: PREOP 05:36
PROVIDERS: ATTEND Podiatrist Foot & Ankle Surgery
DX: Z01.818 Encounter for other preprocedural examination (principal)

== ENCOUNTER → 2018-07-04 | Day surgery (SDC) | payer SELFPAY ==
[~2018-07-04] VITALS: Ht 167.6 cm; Wt 104.3 kg
[~2018-07-04] MED LIST changes: +BUPIVACAINE 0.5% 30 ML (SENSORCAINE) VIAL ONE; +CATHETER FLUSH 10 ML SYR IV PRN; +CEPH500C PO; +DEXAMETHASONE 10 MG/ML (DECADRON) 1 ML VIAL ONE; +HYDROcodone/APAP 5 MG/325 MG (LORTAB) TAB PO PRN; +HYDROmorphone 2 MG/ML VIAL (DILAUDID) IV ONE; +LACTATED RINGERS 1,000 ML IV ONE; +LACTATED RINGERS 1,000 ML IV PRN; +LACTATED RINGERS 1,000 ML IV SCH; +LIDOCAINE 1% INJ 20 ML 20 ML VIAL ONE; +LIDOCAINE PF 2% 5 ML (XYLOCAINE) VIAL ONE; +MIDAZOLAM 2 MG/2 ML (VERSED) VIAL ONE; +ONDANSETRON 4 MG/2 ML (SDV) Z0FRAN IVP PRN; +ONDANSETRON 4 MG/2 ML (SDV) Z0FRAN ONE; +SEVOFLURANE (ULTANE) 15 ML INHAL SOLN ONE; +ceFAZolin INJECTION 1,000 MG in NS (IVPB) 50 ML IV ONE; +fentaNYL INJECTION 100 MCG/2 ML AMP ONE; +morphine INJ 10 MG/ML 1ML (SYR OR VIAL) IVP ONE; +proPOfol 200 MG/20 ML (DIPRIVAN) VIAL IV ONE
--- OUTSIDE RECORDS SUMMARY | 2018-07-04 10:12 | XMS REPORT ---
Author Author SKYE MCKEON Organization [facility] Address [address] [place] [address] Care Team Providers Care Java Technical Manager Name Role Phone KASSIDY MCKEONIN Unavailable PROBLEMS Unknown Problems ALLERGIES No Information ENCOUNTERS Encounter Location Date Diagnosis [place] [id number] [place] [address] Jul, [place] [id number] [place] [address] Jun, Soft tissue lesion of foot M79.89 [place] [id number] [place] [address] Jun, Right foot pain M79.671 [place] [id number] [place] [address] Jun, Edema of right foot R60.0 and Soft tissue lesion of foot M79.89 [place] [address] [place] [address] May, [facility] [id number] [place] [address] May Pain in right foot M79.671 and Cellulitis of foot, right L03.115 [place] [address] [place] [address] May, Other soft tissue disorders related to use, overuse and pressure, right ankle and foot M70.871 [facility] [address] [address] Apr Foot swelling M79.89 and Pain in right foot M79.671 [facility] [address] [address] Feb [facility] Cavazos JANIS CERDA [id number] [place] [address] Feb Foot swelling M79.89 and Pain in right foot M79.671 [facility] Cavazos JANIS CERDA [id number] [place] [address] Jan Foot swelling M79.89 [facility] [address] [facility] [id number] [place] [address] Oct, [facility] Cavazos JANIS CERDA [id number] [place] [address] Oct Foot swelling M79.89 [facility] Cav[facility] JANIS CERDA [id number] [place] [address] Oct Physical exam, pre-employment Z02.1 [facility] Cavazos JANIS CERDA [id number] [place] [address] Aug Abscess L02.91 [facility] [address] [facility] [id number] [place] [id number] Apr, Dental examination Z01.20 and Dental caries K02.9 IMMUNIZATIONS No Known Immunizations SOCIAL HISTORY Never Assessed REASON FOR VISIT Per Dr Mckeon PLAN OF CARE VITAL SIGNS MEDICATIONS Medication Instructions Dosage Frequency Start Date End Date Duration Status Terbinafine HCl 250 MG Orally Once a day 1 tablet 24h Jun, 30 days Active ibuprofen 200 mg Oral as needed 4 tablets Not-Taking RESULTS No Results PROCEDURES No Known procedures INSTRUCTIONS MEDICATIONS ADMINISTERED No Known Medications MEDICAL (GENERAL) HISTORY Type Description Date Surgical History x 3 Surgical History appendectomy Hospitalization History surgery Hospitalization History child
--- OUTSIDE RECORDS SUMMARY | 2018-07-04 10:12 | XMS REPORT ---
Author Author NELY ADAN Organization [facility] Address [address] [place] [address] Care Team Providers Care Guest Services Name Role Phone NELY ADAN Unavailable PROBLEMS Unknown Problems ALLERGIES No Known Allergies ENCOUNTERS Encounter Location Date Diagnosis [place] [id number] [place] [address] Jul, [facility] [address], [place] [address] Jun Soft tissue lesion of foot M79.89 [place] [id number] [place] [address] Jun, Soft tissue lesion of foot M79.89 [place] [id number] [place] [address] Jun, Right foot pain M79.671 [place] [id number] [place] [address] Jun, Edema of right foot R60.0 and Soft tissue lesion of foot M79.89 [place] [id number] [place] [address] May, [facility] [address] [place] [address] May Pain in right foot M79.671 and Cellulitis of foot, right L03.115 [place] [id number] [place] [address] May, Other soft tissue disorders related to use, overuse and pressure, right ankle and foot M70.871 [facility] [address] [place] [address] Apr Foot swelling M79.89 and Pain in right foot M79.671 [facility] Cavazos JANIS CERDA [id number] [place] [address] Feb [facility] Dirk JANIS CERDA [id number] [place] [address] Feb Foot swelling M79.89 and Pain in right foot M79.671 [facility] [place] Dirk JANIS CERDA [id number] [place] [address] Jan Foot swelling M79.89 [facility] [address] [id number], [place] [address] Oct, [facility] [id number] [place] [address] Oct Foot swelling M79.89 [facility] Cavazos JANIS CERDA [id number] [place] [address] Oct Physical exam, pre-employment Z02.1 [facility] Cavazos JANIS CERDA [id number] [place] [address] Aug Abscess L02.91 [facility] [address] [id number] [id number] 07 Apr, 2016 Dental examination Z01.20 and Dental caries K02.9 IMMUNIZATIONS No Known Immunizations SOCIAL HISTORY Never Assessed REASON FOR VISIT H&P for Dr. Pollard - Ana GLEZ , rt foot biopsy Ana Glez , pre-op physical Ana GLEZ PLAN OF CARE Activity Details Follow Up prn Reason: VITAL SIGNS Height 66.0 in 2018-06-19 Weight 230.9 lbs 2018-06-19 Temperature 98.2 degrees Fahrenheit 2018-06-19 Heart Rate 74 bpm 2018-06-19 Respiratory Rate 20 2018-06-19 BMI 37.26 kg/m2 2018-06-19 Blood pressure systolic 110 mmHg 2018-06-19 Blood pressure diastolic 74 mmHg 2018-06-19 MEDICATIONS Medication Instructions Dosage Frequency Start Date End Date Duration Status Diclofenac Sodium 75 MG Orally Twice a day 1 tablet with food or milk 12h May, Jun, 30 day(s) Not-Taking ibuprofen 200 mg Oral as needed 4 tablets Not-Taking RESULTS No Results PROCEDURES No Known procedures INSTRUCTIONS MEDICATIONS ADMINISTERED No Known Medications MEDICAL (GENERAL) HISTORY Type Description Date Surgical History x 3 Surgical History appendectomy Hospitalization History surgery Hospitalization History child
--- OUTSIDE RECORDS SUMMARY | 2018-07-04 10:12 | XMS REPORT ---
Author Author JOSE GEE [facility] Address [address] [place] [address] Care Team Providers Care Animal Daycare Provider Name Role Phone JOSE GEE Unavailable PROBLEMS Unknown Problems ALLERGIES No Information ENCOUNTERS Encounter Location Date Diagnosis [place] [id number] [place] [address] Jul, [facility] [address], [place] [address] Jun Soft tissue lesion of foot M79.89 [place] [id number] [place] [address] Jun, Soft tissue lesion of foot M79.89 [place] [id number] [place] [address] 8[address]26- [address] Jun, Right foot pain M79.671 [place] [id number] [place] [address]- [address] Jun, Edema of right foot R60.0 and Soft tissue lesion of foot M79.89 [place] [id number] [place] [address] May, [facility] [id number] [address] May Pain in right foot M79.671 and Cellulitis of foot, right L03.115 [place] [id number] [place] [address]17- [address] May, Other soft tissue disorders related to use, overuse and pressure, right ankle and foot M70.871 [facility] [address] [place] [address] Apr Foot swelling M79.89 and Pain in right foot M79.671 [facility] [address] [id number] [place] [address] Feb [facility] [address] [id number] [place] [address] Feb Foot swelling M79.89 and Pain in right foot M79.671 [facility] [address] [id number] [place] [address] Jan Foot swelling M79.89 [facility] [address] [facility] [id number] [place] [address] Oct, [facility] [address] [id number] [place] [address] Oct Foot swelling M79.89 [facility] Cavazos JANIS CERDA [id number] [place] [address] Oct Physical exam, pre-employment Z02.1 [facility] Cavazos JANIS CERDA [id number] [place] [address] Aug Abscess L02.91 [facility] [address] [facility] [id number] [id number] 07 Apr, 2016 Dental examination Z01.20 and Dental caries K02.9 IMMUNIZATIONS No Known Immunizations SOCIAL HISTORY Never Assessed REASON FOR VISIT Lab (walk-in)---DAISY paris PLAN OF CARE Activity Details Pending Test LIVER PANEL (LFT) VITAL SIGNS MEDICATIONS Medication Instructions Dosage Frequency Start Date End Date Duration Status Terbinafine HCl 250 MG Orally Once a day 1 tablet 24h Jun, 30 days Active ibuprofen 200 mg Oral as needed 4 tablets Not-Taking RESULTS No Results PROCEDURES Procedure Date Ordered Result Body Site HEPATIC FUNCTION PANEL Jul 02, 2018 JAYLYN, ROUTINE* Jul 02, 2018 INSTRUCTIONS MEDICATIONS ADMINISTERED No Known Medications MEDICAL (GENERAL) HISTORY Type Description Date Surgical History x 3 Surgical History appendectomy Hospitalization History surgery Hospitalization History child
--- OUTSIDE RECORDS SUMMARY | 2018-07-04 10:13 | XMS REPORT | Continuity of Care Document ---
Author Author [facility] Organization [facility] Address Unknown Phone Unavailable Allergies Active Description Code Type Severity Reaction Onset Reported/Identified Relationship to Patient Clinical Status Yes No Known Drug Allergies 79294715 N/A N/A Yes NKANo Known Allergies NKA Miscellaneous Allergy Mild N/A 02/23/2009 Yes No Known Drug Allergies [id number] Drug Allergy Unknown N/A 06/18/2018 Medications There is no data. Problems Date Dx Coded Attending Type Code Diagnosis Diagnosed By 06/18/2018 MIKE DPM, SKYE Q Ot Z01.818 ENCOUNTER FOR OTHER PREPROCEDURAL EXAMIN 06/20/2018 MIKE DPM, SKYE Q Ot E66.9 OBESITY, UNSPECIFIED 06/20/2018 MIKE DPM, SKYE Q Ot F17.210 NICOTINE DEPENDENCE, CIGARETTES, UNCOMPL 06/20/2018 MIKE DPM, SKYE Q Ot R22.41 LOCALIZED SWELLING, MASS AND LUMP, RIGHT 06/20/2018 MIKE DPM, SKYE Q Ot Z68.37 BODY MASS INDEX (BMI) 37.0-37.9, ADULT 06/24/2018 MIKE DPM, SKYE Q Ot Z01.818 ENCOUNTER FOR OTHER PREPROCEDURAL EXAMIN Procedures There is no data. Results Test Result Range - 01/22/18 17:46 GLUCOSE 85 mg/dL 65-99 UREA NITROGEN (BUN) 9 mg/dL 7-25 CREATININE 0.74 mg/dL 0.50-1.10 eGFR NON-AFR. POLISH 109 mL/min/1.73m2 > OR=60 eGFR 127 mL/min/1.73m2 > OR=60 BUN/CREATININE RATIO NOT APPLICABLE (calc) 6-22 SODIUM 136 mmol/L 135-146 POTASSIUM 3.9 mmol/L 3.5-5.3 CHLORIDE 103 mmol/L 98-110 CARBON DIOXIDE 26 mmol/L 20-31 CALCIUM 9.2 mg/dL 8.6-10.2 PROTEIN, TOTAL 6.9 g/dL 6.1-8.1 ALBUMIN 4.2 g/dL 3.6-5.1 GLOBULIN 2.7 g/dL (calc) 1.9-3.7 ALBUMIN/GLOBULIN RATIO 1.6 (calc) 1.0-2.5 BILIRUBIN, TOTAL 0.2 mg/dL 0.2-1.2 ALKALINE PHOSPHATASE 63 U/L 33-115 AST 15 U/L 10-30 ALT 18 U/L 6-29 CBC - 01/22/18 17:46 WHITE BLOOD CELL COUNT 9.0 Thousand/uL 3.8-10.8 RED BLOOD CELL COUNT 4.85 Million/uL 3.80-5.10 HEMOGLOBIN 14.4 g/dL 11.7-15.5 HEMATOCRIT 43.2 % 35.0-45.0 MCV 89.1 fL 80.0-100.0 MCH 29.7 pg 27.0-33.0 MCHC 33.3 g/dL 32.0-36.0 RDW 12.5 % 11.0-15.0 PLATELET COUNT 327 Thousand/uL 140-400 MPV 10.4 fL 7.5-12.5 ABSOLUTE NEUTROPHILS 5877 cells/uL 2944-6811 ABSOLUTE LYMPHOCYTES 2313 cells/uL 850-3900 ABSOLUTE MONOCYTES 576 cells/uL 200-950 ABSOLUTE EOSINOPHILS 162 cells/uL 15-500 ABSOLUTE BASOPHILS 72 cells/uL 0-200 NEUTROPHILS 65.3 % NRG LYMPHOCYTES 25.7 % NRG MONOCYTES 6.4 % NRG EOSINOPHILS 1.8 % NRG BASOPHILS 0.8 % NRG CRP - 01/22/18 17:46 C-REACTIVE PROTEIN 1.7 mg/L <8.0 Urine beta human chorionic gonadotropin (hCG) measurement - 06/20/18 11:15 Urine beta human chorionic gonadotropin (hCG) measurement NEGATIVE NEGATIVE Methicillin resistant Staphylococcus aureus (MRSA) screening culture - 11:15 Methicillin resistant Staphylococcus aureus (MRSA) screening culture NEG NRG Bacteria identification in isolate by anaerobe culture - 06/20/18 13:45 Bacteria identification in isolate by anaerobe culture NOANA NRG Gram stain microscopy - 06/20/18 13:45 Gram stain microscopy No bacteria seen NRG Bacteria identification in wound by culture - 06/20/18 13:45 Bacteria identification in wound by culture [id number] NRG FREE TEXT EXTERNAL NORMAL SKIN SABRINA ISOLATED; NRG QUANTITY OF GROWTH Moderate NRG FREE TEXT ENTRY 2 NO SUSCEPTIBILITIES SET UP NRG Encounters ACCT No. Visit Date/Time Discharge Status Pt. Type Provider Facility Loc./Unit Complaint [id number] 02/08/2018 10:07:53 02/08/2018 23:59:59 CLS Outpatient Doreen Emery [id number] 02/07/2018 18:08:36 02/07/2018 23:59:59 CLS Outpatient Doreen Emery [id number] 03/14/2015 22:17:10 03/14/2015 23:59:59 CLS Outpatient Dwayne Lin [id number] 12/29/2013 12:03:20 12/29/2013 23:59:59 CLS Outpatient Naomy Burger [id number] 06/20/2018 10:58:00 06/20/2018 16:00:00 DIS Outpatient MIKE DPM, SKYE Q Via [facility] SDC TUMOR RIGHT FOOT [id number] 06/18/2018 15:01:00 06/18/2018 15:37:00 DIS Outpatient MIKE DPM, SKYE Q Via [facility] PREOP TUMOR RIGHT FOOT [id number] 05/19/2018 12:10:26 Document Registration [id number] 04/25/2018 14:01:17 Document Registration [id number] 03/31/2018 16:27:10 Document Registration [id number] 03/31/2018 15:30:29 Document Registration [id number] 03/31/2018 15:16:58 Document Registration [id number] 10/29/2017 16:15:07 Document Registration [id number] 06/19/2017 18:58:45 Document Registration [id number] 06/19/2017 18:53:37 Document Registration [id number] 05/16/2018 09:30:00 05/16/2018 23:59:59 CLS Outpatient HILLARY RAINEY [facility] [id number] 01/22/2018 16:40:00 Document Registration
[2018-07-04 11:00] VITALS: BP 116/78
--- NOTE | 2018-07-04 11:58 | Progress Note-Pre Operative ---
Pre-Operative Progress Note H&P Reviewed The H&P was reviewed, patient examined and no changes noted. Date Seen by Provider: Jul 04, 2018 Time Seen by Provider: 11:57 Date H&P Reviewed: Jul 04, 2018 Time H&P Reviewed: 11:57 Pre-Operative Diagnosis: Deep Fungal Infection right foot SKYE MCKEON DPM Jul 04, 2018 11:58 am
--- NOTE | 2018-07-04 12:57 | Progress Note-Post Operative ---
Post-Operative Progess Note Surgeon (s)/Youth Coordinator (s) Surgeon SKYE MCKEON DPM Youth Coordinator: none Pre-Operative Diagnosis Deep Fungal Infection right foot Post-Operative Diagnosis same Procedure & Operative Findings Date of Procedure 07/04/18 Procedure Performed/Findings Deep tissue cultures and biopsy right foot Anesthesia Type General Estimated Blood Loss Estimated blood loss (mL): minimal Specimens/Packing Specimens Removed soft tissue right foot SKYE MCKEON DPM Jul 04, 2018 12:57 pm
[2018-07-04 14:10] VITALS: BP 113/74
--- NOTE | 2018-07-04 14:36 | Anesthesia-General Post-Op ---
General Patient Condition Mental Status/LOC: Same as Preop Cardiovascular: Satisfactory Nausea/Vomiting: Absent Respiratory: Satisfactory Pain: Controlled Complications: Absent Post Op Complications Complications None Follow Up Care/Instructions Patient Instructions None needed. Anesthesia/Patient Condition Patient Condition Patient is doing well, no complaints, stable vital signs, no apparent adverse anesthesia problems. No complications reported per nursing. D/C home per [facility] Criteria: Yes ODALIS DESIR CRNA Jul 04, 2018 14:36
[2018-07-04 14:40] VITALS: BP 106/70
[2018-07-04 15:09] VITALS: BP 106/70
[2018-07-04 15:10] VITALS: BP 115/83
--- NOTE | 2018-07-04 23:49 | OPERATIVE REPORT ---
DATE OF SERVICE: 07/04/2018 SURGEON: Jodi Mckeon DPM. PREOPERATIVE DIAGNOSIS: Soft tissue mass, right foot with fungal infection. POSTOPERATIVE DIAGNOSIS: Soft tissue mass, right foot with a fungal infection. PROCEDURE: Deep tissue culture for fungal and bacteria as well as pathology. WOUND CLASS: Clean. ANESTHESIA: General. HEMOSTASIS: Pneumatic ankle tourniquet at 250 mmHg. INDICATIONS: This is a 27-year-old female presents with a mass to the plantar aspect of the right foot. She had a recent biopsy of the site, which indicated some fungal hyphae in the pathology report. It was recommended by the pathologist that a second sample of tissue would be procured for fungal cultures, which would be to help direct treatment. The patient is willing to proceed. Informed consent was explained and signed. No guarantees were extended to the patient and she has proceeded today. DESCRIPTION OF PROCEDURE: The patient was brought back to the operating table, placed in secure supine position. A general anesthetic was then induced. Appropriate timeout was performed. The sutures were removed from the plantar aspect of the right foot. Once the sutures were removed the right foot was then prepped and draped in normal sterile manner. Utilizing 10 mL of 1.5% Xylocaine the local infusion was performed to the surgical site. The incision was reopened for only the central 2 cm. The deep probing was performed down to the gelatinous st tissue, which was excised from the wound and sent for gross microscopic evaluation. Orders were taken to perform fungal cultures as well as bacterial cultures and the remainder was sent for pathology. The wound was then irrigated with copious amounts of normal saline and closure was then performed in layers. Deep closure was performed with 3-0 Vicryl, superficial with 4-0 Vicryl, skin closed with 4-0 Prolene in a simple interrupted type stitch. A postoperative dressing consisted of Betadine soaked Adaptic, sterile 4 x 4, sterile Kerlix, all secured with a Coban wrap. The patient tolerated the anesthesia and procedure well and was transported from the operating room to the recovery area with vital signs stable and vascular status intact to all digits of the right foot. The patient is to follow up at the [facility] in approximately one week period of time or sooner if necessary. Job ID: [id number] DocumentID: [id number] Dictated Date: 07/04/2018 13:07:25 Waste Disposal Leakage Tester Date: 07/04/2018 23:49:12 Dictated By: JODI MCKEON DPM
== END | disposition home or self-care (01) ==
LOC: SDC 10:06
PROVIDERS: ATTEND Podiatrist Foot & Ankle Surgery
DX: M79.671 Pain in right foot (principal); F17.210 Nicotine dependence, cigarettes, uncomplicated; Z11.2 Encounter for screening for other bacterial diseases
CPT/HCPCS: 84703; 87070; 87075; 87077; 87081; 87101; 87116; 87186; 87205; 87206